=== PATIENT | female | born 1970 | race Caucasian/White ===

== ENCOUNTER 2020-08-17 16:22 | Emergency (ER) | payer OTHER ==
[~2020-08-17 16:22] MED LIST: LEXAPRO 10MG TA10 MG PO; NORCO 5-325 TA1 EACH PO; ZOFRAN4 MG PO
[2020-08-17 17:41] LABS: BASOPHIL 0.6 % (0-2); EOSINOPHIL 2.7 % (0-5); HCT 43.8 % (37.0-47.0); HGB 14.6 g/dl (12.5-16.0); MCH 30.4 pg (25.0-31.0); MCHC 33.3 g/dL (32.0-36.0); MCV 91.3 fL (78.0-100.0); MONOCYTE 8.3 % (0-12); MPV 11.2 fL (6.0-9.5); NEUTROPHIL 57.3 % (41-80); NRBC 0; PLT 191 K/uL (150-400); RDW 11.9 % (11.5-14.0)
[2020-08-17 17:57] LABS: ALBUMIN 3.9 g/dL (3.4-5.0); BILIRUBIN - TOTAL 0.2 mg/dL (0.2-1.0); BUN/CREAT RATIO (CALC) 15.7 RATIO; CREATININE 0.89 mg/dL (0.51-0.95); GLOBULIN (CALCULATION) 3.7 g/dL; POTASSIUM 3.8 mmol/L (3.5-5.1); TOTAL PROTEIN 7.6 g/dL (6.4-8.2)
[2020-08-17] MEDS ORDERED: ANTIVERT25 MG PO (18:44)
== END 2020-08-17 18:29 | disposition home or self-care (01) ==
LOC: FER 16:22
PROVIDERS: Emergency Medicine
DX: R42 Dizziness and giddiness (principal); Z88.6 Allergy status to analgesic agent
CPT/HCPCS: 36415; 70450; 80053; 85025; 93005

== ENCOUNTER 2021-10-10 17:49 | Emergency (ER) | payer OTHER ==
[~2021-10-10 17:49] MED LIST changes: +ANTIVERT25 MG PO
[2021-10-10 18:19] LABS: BASOPHIL 0.8 % (0-2); EOSINOPHIL 2.3 % (0-5); HCT 44.1 % (37.0-47.0); LYMPHOCYTE 32.7 % (15-48); MCH 29.8 pg (25.0-31.0); MCV 87.7 fL (78.0-100.0); MONOCYTE 7.8 % (0-12); MPV 10.8 fL (6.0-9.5); NEUTROPHIL 56.1 % (41-80); NRBC 0; PLT 168 K/uL (150-400); RBC 5.03 M/uL (4.20-5.40); RDW 11.5 % (11.5-14.0); WBC 7.9 K/uL (4.0-10.5)
[2021-10-10 18:36] LABS: CREATININE 0.65 mg/dL (0.51-0.95); POTASSIUM 3.7 mmol/L (3.5-5.1)
[2021-10-10 18:53] LABS: CORONAVIRUS 2019 SARS-COV-2 NEGATIVE (NEGATIVE); INFLUENZA A NAA NEGATIVE (NEGATIVE)
[2021-10-10] MEDS ORDERED: METFORMIN HCL500 MG PO (21:01)
== END 2021-10-10 21:04 | disposition home or self-care (01) ==
LOC: FER 17:49
PROVIDERS: Nurse Practitioner Family
DX: R07.89 Other chest pain (principal); E11.65 Type 2 diabetes mellitus with hyperglycemia; Z88.6 Allergy status to analgesic agent; Z20.822 Contact with and (suspected) exposure to COVID-19
CPT/HCPCS: 36415; 71045; 80048; 82009; 83036; 84484; 85025; 93005; U0002

== ENCOUNTER 2022-02-15 09:06 | Emergency (ER) | payer OTHER ==
[~2022-02-15 09:06] MED LIST changes: +METFORMIN HCL500 MG PO
[2022-02-15 09:38] LABS: BASOPHIL 0.7 % (0-2); EOSINOPHIL 2.8 % (0-5); HCT 44.7 % (37.0-47.0); HGB 15.1 g/dl (12.5-16.0); LYMPHOCYTE 35.4 % (15-48); MCH 29.7 pg (25.0-31.0); MCHC 33.8 g/dL (32.0-36.0); MCV 87.8 fL (78.0-100.0); MONOCYTE 8.2 % (0-12); MPV 10.8 fL (6.0-9.5); NEUTROPHIL 52.4 % (41-80); NRBC 0; PLT 198 K/uL (150-400); RBC 5.09 M/uL (4.20-5.40); RDW 11.9 % (11.5-14.0); WBC 5.7 K/uL (4.0-10.5)
[2022-02-15 09:49] LABS: INR 0.89 (0.9-1.2); PROTHROMBIN TIME 11.8 SECONDS (11.9-13.9); PTT 25.9 SECONDS (24.9-34.6)
[2022-02-15 10:17] LABS: ALBUMIN 3.6 g/dL (3.4-5.0); BILIRUBIN - TOTAL 0.4 mg/dL (0.2-1.0); BUN/CREAT RATIO (CALC) 17.6 RATIO; CREATININE 0.68 mg/dL (0.51-0.95); GLOBULIN (CALCULATION) 3.2 g/dL; POTASSIUM 4.1 mmol/L (3.5-5.1); TOTAL PROTEIN 6.8 g/dL (6.4-8.2)
== END 2022-02-15 13:25 | disposition home or self-care (01) ==
LOC: FER 09:06
PROVIDERS: Emergency Medicine
DX: R07.89 Other chest pain (principal); U07.1 COVID-19; Z88.6 Allergy status to analgesic agent; Z87.891 Personal history of nicotine dependence; Z28.310 Unvaccinated for COVID-19
CPT/HCPCS: 36415; 71045; 71275; 80053; 84484; 85025; 85379; 85610; 85730; 93005; Q9967